=== PATIENT | female | born 1965 | race Caucasian/White ===

== ENCOUNTER 2019-06-18 03:18 | Outpatient (CLI) | payer BC, SELFPAY ==
[2019-06-18 08:45] LABS: Calculated LDL 146 mg/dL; Cholesterol 251 mg/dL (<200); HDL Cholesterol 98 mg/dL (40-60); Triglyceride 36 mg/dL (<150)
[2019-06-18 09:52] LABS: FREE T4 0.96 ng/dL (0.76-1.46)
[2019-06-18 16:35] LABS: T3,Free 3.3 pg/mL (2.8-5.3)
== END 2019-06-18 03:38 ==
PROVIDERS: PCP Naturopath; Visit Provider Naturopath
DX: E78.5 Hyperlipidemia, unspecified (principal); R79.89 Other specified abnormal findings of blood chemistry
CPT/HCPCS: 36415; 80061; 84439; 84443; 84481

== ENCOUNTER 2019-07-28 01:41 | Outpatient (CLI) | payer BC, SELFPAY ==
[2019-07-28 10:46] LABS: Calculated LDL 132 mg/dL; Cholesterol 244 mg/dL (<200); HDL Cholesterol 104 mg/dL (40-60); TSH 5.42 uIU/mL (0.36-3.74); Triglyceride 43 mg/dL (<150)
[2019-07-28 11:23] LABS: FREE T4 0.85 ng/dL (0.76-1.46)
[2019-07-29 11:55] LABS: T3, Total 103 ng/dL (97-169)
[2019-07-31 00:20] LABS: 25-Hydroxy D Total 55 ng/mL; 25-Hydroxy D2 <4.0 ng/mL; 25-Hydroxy D3 55 ng/mL
== END 2019-07-28 02:01 ==
PROVIDERS: PCP Naturopath; Visit Provider Naturopath
DX: E78.5 Hyperlipidemia, unspecified (principal); R79.89 Other specified abnormal findings of blood chemistry; E55.9 Vitamin D deficiency, unspecified
CPT/HCPCS: 36415; 80061; 82306; 84439; 84443; 84480; 84481

== ENCOUNTER 2020-01-11 02:15 | Outpatient (CLI) | payer BC, SELFPAY ==
[2020-01-11 09:04] LABS: FREE T4 0.94 ng/dL (0.76-1.46); TSH 5.28 uIU/mL (0.36-3.74)
[2020-01-11 11:06] LABS: Calculated LDL 135 mg/dL (<100); Cholesterol 251 mg/dL (<200); HDL Cholesterol 106 mg/dL (40-60); Triglyceride 51 mg/dL (<150)
[2020-01-11 17:04] LABS: T3,Free 2.6 pg/mL (2.8-5.3)
[2020-01-14 13:57] LABS: Testosterone, Free 0.13 ng/dL (0.06-0.90); Testosterone, Total 14 ng/dL (8-60)
== END 2020-01-11 02:35 ==
PROVIDERS: PCP Nurse Practitioner Family; Visit Provider Naturopath
DX: E78.5 Hyperlipidemia, unspecified (principal); E03.9 Hypothyroidism, unspecified; R79.89 Other specified abnormal findings of blood chemistry
CPT/HCPCS: 36415; 80061; 84402; 84403; 84439; 84443; 84481

== ENCOUNTER 2020-06-15 02:52 | Outpatient (CLI) | payer BC, SELFPAY ==
[2020-06-15 16:24] LABS: D-Dimer 196 ng/mlFEU (<500)
[2020-06-15 17:37] LABS: TSH 5.05 uIU/mL (0.36-3.74)
[2020-06-15 17:56] LABS: FREE T4 0.79 ng/dL (0.76-1.46)
[2020-06-21 10:52] LABS: Factor V Leiden(R506Q) Mut Negative (Negative)
[2020-07-01 10:41] LABS: T3, Total 71 ng/dL (80-200)
[2020-07-01 10:42] LABS: T3,Free 2.8 pg/mL
== END 2020-06-15 03:12 ==
PROVIDERS: PCP Nurse Practitioner Family; Visit Provider Naturopath
DX: E55.9 Vitamin D deficiency, unspecified (principal); R79.89 Other specified abnormal findings of blood chemistry; Z82.49 Family history of ischemic heart disease and other diseases of the circulatory system
CPT/HCPCS: 36415; 81241; 82306; 84439; 84443; 84480; 84481; 85379

== ENCOUNTER 2020-10-04 12:26 | Outpatient (CLI) | payer BC, SELFPAY ==
--- NOTE | 2020-10-04 14:45 | RT.EKG_ITS ---
APPROVED REPORT Exam: Resting ECG Patient Location: O HR:76 bpm ECG Measurements Heart Rate 76 AXIS ND 165 P 80 QRSd 106 QRS 54 QT 398 T 25 QTc 447 Conclusion Sinus rhythm...normal P axis, V-rate 60- 99
== END 2020-10-04 12:27 | disposition home or self-care (01) ==
LOC: RT 12:32
PROVIDERS: PCP Nurse Practitioner Family; Visit Provider Naturopath
DX: R00.2 Palpitations (principal)
CPT/HCPCS: 93005; 93010

== ENCOUNTER 2020-12-09 23:06 | Emergency (ER) | payer BC, SELFPAY ==
[2020-12-09] VITALS (10 sets, daily range): BP systolic 134–173; BP diastolic 77–91; PULSE 78–91; RESP 9–20; TEMP 37; O2SAT 88–100
--- NOTE | 2020-12-09 23:00 | RT.EKG_ITS ---
APPROVED REPORT Exam: Resting ECG Reason for Exam: palpitations Patient Location: E HR:85 bpm ECG Measurements Heart Rate 85 AXIS PA 185 P 70 QRSd 103 QRS 57 QT 371 T 37 QTc 442 Conclusion Sinus rhythm...normal P axis, V-rate 60- 99 Normal [place] Normal Intervals Normal Electrocardiogram
--- NOTE | 2020-12-09 23:49 | W.ED.GENAD ---
Discharge Plan Disposition Patient Disposition: HOME Condition: Good Discharge Details Clinical Impression: Palpitations, Hypokalemia Primary Care Provider: Emma Duncan ED Provider: Manuel Schmitz Meds and New Rx's Prescriptions: Continued cholecalciferol (vitamin D3) 1,000 unit/drop drops 2,000 unit PO DAILY RF: 0 Probiotics 1 cap PO DAILY RF: 0 Vitamin C 1 tab PO DAILY RF: 0 azithromycin 250 mg tablet 250 mg PO DAILY RF: 0 Discharge Instructions Instructions: Heart Palpitations (ED), Hypokalemia (ED) Additional Instructions: EKG is normal. No arrhythmia alarms while monitored tonight. Laboratory studies look good although potassium a little low. Order placed for 14-day surveillance monitor to be placed on same day that you get your echo. Follow-up with primary care. Return to ED for syncope, chest pain, shortness of breath, prolonged/persistent palpitations. Referrals: Emma Duncan, [employer]SEM[employer] INSPECTOR [Primary Care Provider] - Medical Decision Making Episode of palpitations that woke her up tonight. Resolved by time she arrived to ED. Has had similar yet less intense and shorter episodes previously over the last few months. No associated chest pain/pressure or shortness of breath. Scheduled to have an ECHO next week. EKG tonight is normal. Monitor shows sinus rhythm. Will send blood work to check TSH and electrolytes. Given previous history not concerned for ACS or PE. Will order outpatient 14-day surveillance monitor to be placed on same day she comes to have her ECHO. 01:00 - Labs look okay other than potassium being a little low. This was replaced orally tonight. TSH high but free T4 is normal. No arrhythmia alarms on the monitor while here. Will discharge home and follow-up with primary care as well as return to hospital on of next week for ECHO and placement of surveillance monitor. Lab Data Lab results reviewed: Yes I reviewed the patient's lab results. ECG Data Attestation: I personally reviewed and interpreted this ECG (s) as follows: Prior ECG tracings: available for review Interpretation: see EKG HPI General Mode of arrival: ambulatory. Date/Time Provider Initiated Documentation: 12/09/20 23:47. Limitations to Documentation: no limitations. Information obtained by: patient and RN notes reviewed. HPI Narrative: Patient presents to ED after waking up tonight with palpitations/heart racing. She has had similar yet less intense and shorter episodes than serene. She denies having any type of chest pain or pressure. She denies any shortness of breath. She is scheduled for an ECHO next week. She has not had Holter monitoring. Patient denies any illness other than a tooth infection for which she is on antibiotic and has an appointment for removal on Saturday. She has had no fever, cough, vomiting, diarrhea. Symptoms resolved since she was checked into the ED. She did not experience any lightheadedness or dizziness during the episode. Related Data Home Medications Medication Instructions Recorded Confirmed Probiotics 1 cap PO DAILY 11/15/14 12/09/20 Vitamin C 1 tab PO DAILY 11/15/14 12/09/20 cholecalciferol (vitamin D3) 2,000 unit PO DAILY ml 04/25/18 12/09/20 azithromycin 250 mg PO DAILY 12/09/20 12/09/20 Allergies Allergy/AdvReac Type Severity Reaction Status Date / Time Sulfa (Sulfonamide Allergy Intermediate Skin Rash Verified 12/09/20 23:15 Antibiotics) General Stated Complaint: Palpitatns MARIAMA: 2 Review of Systems Narrative: As documented in HPI otherwise negative as below. 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 Daughter No problems noted. Maternal Grandfather , in his 80s COPD (chronic obstructive pulmonary disease) Maternal Grandmother , at 96 of old age Colon cancer in her 70s Paternal Grandfather , at 86 COPD (chronic obstructive pulmonary disease) Paternal Grandmother , at 96 of old age No problems noted. Social History Smoking/Tobacco Use Status: Never Smoking risk assessment performed?: Yes Alcohol Intake: current Alcohol Intake frequency: holidays/special occasions only Substance use type: does not use Household members: spouse current occupation: planning and analysis manager Current gender identity: female Duration: 60-90 minutes/day Frequency: 5-6 times per week Do you feel safe at home: Yes Do you feel safe in your relationship?: Yes History History 2 Para 2 Hx # Term Pregnancies Multiple births Hx # Pregnancies Ectopic pregnancies AB induced Hx Number of Living Children 2 AB spontaneous Exam Narrative Exam Narrative: Const: WDWN female in NAD. HEENT: NC/AT. Normal facial exam. Eyes: Normal conjunctiva and sclera. Neck: Supple. Trachea midline. Lungs: Normal respiratory effort. Lungs are clear. Cor: RRR without murmur/gallop. Good radial pulses. Neuro: A+O x 3. Normal speech, mentation, gait. Cranial nerves II - XII grossly intact. No gross motor or sensory deficit. Ext: No C/C/E. Skin: Warm and dry without rash. Course Vital Signs Vital signs: Vital Signs Temperature 98.6 F 12/09/20 23:09 Pulse 91 H 12/09/20 23:09 Respiratory Rate 15 12/09/20 23:09 Blood Pressure 173/91 H 12/09/20 23:09 Pulse Oximetry 88 L 12/09/20 23:09 Temperature 98.6 F 12/09/20 23:09 Temperature Source Skin 12/09/20 23:09 Pulse 80 12/09/20 23:46 Pulse 80 12/09/20 23:46 Respiratory Rate 10 L 12/09/20 23:46 Respiratory Effort Non-Labored 12/09/20 23:20 Blood Pressure 134/77 12/09/20 23:46 Blood Pressure Mean 93 12/09/20 23:46 Blood Pressure Position Supine 12/09/20 23:09 Pulse Oximetry 100 12/09/20 23:46 Oxygen Delivery Method Room Air 12/09/20 23:09 Oxygen Flow Rate 0 12/09/20 23:09 Pain Level 0 12/09/20 23:09
[2020-12-09 23:56] LABS: Abs Immature Grans 0.01 10^3/uL (0.0-0.06); Absolute Basophil Count 0.06 10^3/uL (0.0-0.2); Absolute Eosinophil Count 0.21 10^3/uL (0.0-0.7); Absolute Lymphocyte Count 3.37 10^3/uL (1.2-3.4); Absolute Monocyte Count 0.89 10^3/uL (0.1-0.8); Basophils % 0.8; Eosinophils % 2.9; HCT 41.4 % (36.0-46.0); Immature Grans % 0.1; Lymphocytes % 45.9; MCH 30.8 pg (27.0-33.0); MCHC 33.8 % (32.0-36.0); MPV 10.1 fL (8.0-11.0); Monocytes % 12.1; Neutrophils % 38.2; Nucleated RBC 0 %; Platelet Count 343 10^3/uL (130-400); RBC 4.55 10^6/uL (3.93-5.22); RDW 11.9 % (11.7-14.6); RDW-SD 39.9 fL; WBC 7.34 10^3/uL (4.4-10.8)
[2020-12-10] VITALS (13 sets, daily range): BP systolic 122–130; BP diastolic 75–82; PULSE 68–81; RESP 9–17; O2SAT 97–100
[2020-12-10 00:09] LABS: Magnesium 2.1 mg/dL (1.8-2.4)
[2020-12-10 00:22] LABS: Anion Gap 10.2 mmol/L (3-11); BUN 24 mg/dL (7-18); CO2 28.8 mmol/L (21.0-32.0); CREATININE 0.8 mg/dL (0.55-1.02); Calcium 9.7 mg/dL (8.5-10.1); Chloride 103 mmol/L (98-107); Glucose 97 mg/dL (74-106); Potassium 3.2 mmol/L (3.5-5.1); Sodium 142 mmol/L (136-145); TSH (W/Ref FT4) 25.75 uIU/mL (0.36-3.74)
[2020-12-10 00:43] LABS: FREE T4 0.99 ng/dL (0.76-1.46)
[2020-12-10] MEDS: Potassium Chloride 20 MEQ TABCR 40 MEQ PO (01:16)
--- NOTE | 2020-12-12 12:30 | HOLTER_ITS ---
APPROVED REPORT Conclusion This is a 48-hour monitor ordered for the indication of palpitations. Patient was in normal sinus rhythm for the majority of the recording with an average heart rate of 67 bpm. There were no episodes of ventricular tachycardia nor any episodes of supraventricular tachycardia. There were rare PACs (less than 1%). There were no episodes of atrial fibrillation no pauses greater than 3 seconds and no evidence of hig h degree heart block. There were 7 patient triggered events 2 of which were associated with a PAC the rest normal sinus [facility].
== END 2020-12-10 01:20 | disposition home or self-care (01) ==
PROVIDERS: Emergency Provider Emergency Medicine; PCP Nurse Practitioner Family
DX: R00.2 Palpitations (principal); E87.6 Hypokalemia; R94.6 Abnormal results of thyroid function studies
CPT/HCPCS: 36415; 80048; 93005; 99284; 83735; 84439; 84443; 85025; 93010; 93225

== ENCOUNTER 2020-12-13 14:05 | Outpatient (RCR) | payer BC, SELFPAY | END 2020-12-26 23:59 | disposition home or self-care (01) | LOC: RT 14:05 | PROVIDERS: PCP Nurse Practitioner Family; Visit Provider Emergency Medicine | DX: R00.2 Palpitations (principal); I49.1 Atrial premature depolarization | CPT/HCPCS: 93226 ==

== ENCOUNTER 2020-12-15 02:12 | Outpatient (CLI) | payer BC, SELFPAY ==
--- NOTE | 2020-12-15 07:38 | DI.US_ITS ---
APPROVED REPORT EXAM: Comprehensive 2D, Doppler, and color-flow Echocardiogram Patient Location: Out-Patient Vice President Education: Gabriela Tejeda RDCS (AE) Indications: Murmur Other Information Study Quality: Good Conclusion Left Ventricle : The left ventricle is normal size. The left ventricular systolic function is normal. The left ventricular ejection fraction is within the normal range. There is normal left ventricular wall thickness. There is normal LV segmental wall motion. LVEF is 60%. Right Ventricle : The right ventricle is normal size. The right ventricular systolic function is norm al. The RVSP is 25.0 mmHg. Atria : The left atrium size is normal. The right atrium size is normal. Valves: There are no hemodynamically significant valvular lesions. Great Vessels : The aortic root is normal in size. The ascending aorta is normal in size. Aortic arch is not well visualized. IVC is normal in size and collapses >50% with inspiration. Wall motion Left Ventricle The left ventricle is normal size. The left ventricular systolic function is normal. The left ventric ular ejection fraction is within the normal range. There is normal left ventricular wall thickness. T here is normal LV segmental wall motion. There is no ventricular septal defect visualized. LVEF is 60 %. Right Ventricle The right ventricle is normal size. The right ventricular systolic function is normal. The RVSP is 25 .0 mmHg. Atria The left atrium size is normal. The right atrium size is normal. The interatrial septum is intact wit h no evidence for an atrial septal defect. Aortic Valve The aortic valve is normal in structure. Aortic valve is trileaflet. There is no aortic valvular sten osis. No aortic regurgitation is present. Mitral Valve The mitral valve is normal in structure. No evidence of mitral valve stenosis. Trace to mild mitral r egurgitation. Tricuspid Valve The tricuspid valve is normal in structure. There is no tricuspid valve stenosis. Trace to mild tricu spid regurgitation. Pulmonic Valve The pulmonary valve is normal in structure. There is no pulmonic valvular stenosis. There is no pulmo reece valvular regurgitation. Great Vessels The aortic root is normal in size. The ascending aorta is normal in size. Aortic arch is not well vis ualized. IVC is normal in size and collapses >50% with inspiration. Pericardium There is no pericardial effusion. 2D Dimensions IVSD d PLAX 0.80 cm F: 0.6-1.0 LV Vol A2C d MOD 93.4 mL LVPW d PLAX 0.80 cm F: 0.6 - 1.0 LV Vol A4C d MOD 83.2 mL LVID d PLAX 4.89 cm F: 3.8 - 5.2 LA Area A4C s MOD 19.45 cm2 LVDs 3.35 cm F: 2.2 - 3.5 LA Area A2C s MOD 13.25 cm2 Ao Root d 2.74 cm F: 2.7 - 3.3 LV EF A4C MOD 62.5 % RA Area A4C 13.20 cm2 LV EF A2C MOD 62.9 % Ao Asc Diam d 3.08 cm F: 2.3 - 3.1 LV EF Biplane MOD 63.3 % LV EF Teichholz 59.2 % SV 59.11 mL LVEF (Puckett's) 63.30 % F: 54 - 74 LV Volume 93.39 mL F: 46 - 106 LV Volume Index 54.29 mL/m2 F: 29 - 61 LV Vol Biplane MOD 93.4 mL FS 31.40 % LV Diastology E/A Ratio 1.1 MV E Vmax 0.63 (0.4-1.3 m/s) MV A Vmax 0.55 (0.4-1.3 m/s) MV E/A Ratio 1.07 Aortic Valve LVOT Area 3.18 cm2 AoV Area Vmax 2.58 cm2 LVOT Vmax 1.04 m/s ARVIND Mean Simon. 2.55 cm2 LVOT Mean Simon. 0.63 m/s LVOT Peak Grad 4.3 mmHg LVOT Mean Grad 1.9 mmHg LVOT VTI 0.233 m LVOT Diam s 2.00 cm AoV Vmax 1.28 m/s Velocity Ratio 0.81 AoV Mean Simon. 0.78 m/s AoV Peak Grad 6.6 mmHg LVOT SV 74.25 mL AoV Mean Grad 2.9 mmHg AoV VTI 0.249 m AoV Area VTI 2.99 cm2 Mitral Valve MV DT 222 (160-240 msec) MR Vmax 4.72 m/s MV PHT 64 msec MR VTI 1.709 m MV Area PHT 3.41 cm2 MR Peak Grad 89.0 mmHg MV VTI 0.194 m MR Mean Grad 64.7 mmHg MV VTI Annulus 0.197 m MR PISA Radius 0.41 cm MV Area VTI 3.89 (4.0-6.0 cm2) MR EROA 0.08 cm2 MR Aliasing Velocity 0.35 m/s MR PISA 1.05 cm2 Pulmonary Valve PV Vmax 0.85 (0.5-1.5 m/s) RVOT Peak Gr. 2.52 mmHg PV Peak Grad 2.9 mmHg RVOT Mean Gr. 1.30 mmHg PV Mean Grad 1.6 mmHg RVOT VTI 0.187 m PV VTI 0.177 m RVOT Vmax 0.79 m/s Tricuspid Valve TR Peak Grad 22.0 mmHg TR Vmax 2.35 m/s RA Pressure 3.00 mmHg RVSP (TR) 25.0 mmHg
== END 2020-12-15 02:32 ==
PROVIDERS: PCP Nurse Practitioner Family; Visit Provider Naturopath
DX: R01.1 Cardiac murmur, unspecified (principal)
CPT/HCPCS: 93306

== ENCOUNTER 2021-01-16 03:20 | Outpatient (CLI) | payer BC, SELFPAY ==
[2021-01-16 08:37] LABS: Anion Gap 6.7 mmol/L (3-11); BUN 16 mg/dL (7-18); CO2 29.3 mmol/L (21.0-32.0); CREATININE 0.7 mg/dL (0.55-1.02); Calcium 9.2 mg/dL (8.5-10.1); Chloride 105 mmol/L (98-107); FREE T4 0.75 ng/dL (0.76-1.46); Glucose 92 mg/dL (74-106); Potassium 4.1 mmol/L (3.5-5.1); Sodium 141 mmol/L (136-145); TSH 6.81 uIU/mL (0.36-3.74)
[2021-01-18 22:31] LABS: Thyroglobulin Antibody <15 U/mL (<=60); Thyroperoxidase Antibody <28 U/mL (<=60)
== END 2021-01-16 03:21 | disposition home or self-care (01) ==
LOC: LBO 03:20
PROVIDERS: PCP Nurse Practitioner Family; Visit Provider Nurse Practitioner Family
DX: E03.9 Hypothyroidism, unspecified (principal)
CPT/HCPCS: 36415; 80048; 86376; 84439; 84443; 84481

== ENCOUNTER 2021-07-19 02:54 | Outpatient (CLI) | payer BC, SELFPAY ==
[2021-07-19 08:46] LABS: HCT 41.4 % (36.0-46.0); HGB 13.4 g/dL (11.2-15.7); MCHC 32.4 % (32.0-36.0); MCV 92.6 fL (80-95); MPV 9.7 fL (8.0-11.0); Platelet Count 344 10^3/uL (130-400); RBC 4.47 10^6/uL (3.93-5.22); RDW 12.6 % (11.7-14.6)
[2021-07-19 09:53] LABS: ALT 35 U/L (14-59); AST 26 U/L (15-37); Alkaline Phosphatase 75 U/L (46-116); Anion Gap 5.8 mmol/L (3-11); BUN 13 mg/dL (7-18); Bilirubin, Total 0.7 mg/dL (0.2-1.0); CO2 30.2 mmol/L (21.0-32.0); CREATININE 0.7 mg/dL (0.55-1.02); Calcium 9.4 mg/dL (8.5-10.1); Chloride 100 mmol/L (98-107); Ferritin 162 ng/mL (8-252); Glucose 95 mg/dL (74-106); Potassium 4.1 mmol/L (3.5-5.1); Sodium 136 mmol/L (136-145); TSH 5.93 uIU/mL (0.36-3.74); Total Protein 7.2 g/dL (6.4-8.2)
[2021-07-19 10:06] LABS: Iron 106 ug/dL (50-170); Total Iron Binding Capacity 241 ug/dL (250-450); Transferrin Sat 44 % (15-50)
[2021-07-19 10:22] LABS: FREE T4 0.91 ng/dL (0.76-1.46)
[2021-07-19 22:40] LABS: T3,Free 3.3 pg/mL (2.8-5.3)
[2021-07-19 22:54] LABS: T3, Total 128 ng/dL (97-169)
[2021-07-20 05:31] LABS: Vitamin D 25 Total 88.9 ng/mL (30-100)
== END 2021-07-19 02:55 | disposition home or self-care (01) ==
LOC: LBO 02:54
PROVIDERS: PCP Nurse Practitioner Family; Visit Provider Naturopath
DX: R53.83 Other fatigue (principal); E55.9 Vitamin D deficiency, unspecified
CPT/HCPCS: 36415; 80053; 82306; 85027; 82728; 83540; 83550; 84439; 84443; 84480; 84481

== ENCOUNTER 2022-05-28 03:24 | Outpatient (CLI) | payer BC, SELFPAY ==
[2022-05-28 13:18] LABS: ALT 22 U/L (14-59); AST 31 U/L (15-37); Albumin 4.1 g/dL (3.4-5.0); Alkaline Phosphatase 72 U/L (46-116); Anion Gap 7.8 mmol/L (3-11); BUN 15 mg/dL (7-18); Bilirubin, Total 0.7 mg/dL (0.2-1.0); CO2 29.2 mmol/L (21.0-32.0); CREATININE 0.7 mg/dL (0.55-1.02); Calcium 9.6 mg/dL (8.5-10.1); Calculated LDL 154 mg/dL (<100); Chloride 102 mmol/L (98-107); Cholesterol 268 mg/dL (<200); Estimated GFR 100.19 (mL/min/1.73m2); Glucose 93 mg/dL (74-106); HDL Cholesterol 104 mg/dL (40-60); Magnesium 1.8 mg/dL (1.8-2.4); Potassium 4.8 mmol/L (3.5-5.1); Sodium 139 mmol/L (136-145); TSH (W/Ref FT4) 5.04 uIU/mL (0.36-3.74); Total Protein 7.8 g/dL (6.4-8.2); Triglyceride 50 mg/dL (<150)
[2022-05-28 13:43] LABS: FREE T4 0.89 ng/dL (0.76-1.46)
[2022-05-29 18:13] LABS: T3,Free 3.1 pg/mL (2.8-5.3)
[2022-05-29 18:28] LABS: T3, Total 105 ng/dL (97-169)
[2022-06-03 17:46] LABS: 25-Hydroxy D Total 53 ng/mL; 25-Hydroxy D2 <4.0 ng/mL; 25-Hydroxy D3 53 ng/mL
== END 2022-05-28 03:25 | disposition home or self-care (01) ==
LOC: LOS 03:24
PROVIDERS: PCP Nurse Practitioner Family; Visit Provider Naturopath
DX: E87.6 Hypokalemia (principal); E78.5 Hyperlipidemia, unspecified; R79.89 Other specified abnormal findings of blood chemistry; E55.9 Vitamin D deficiency, unspecified
CPT/HCPCS: 36415; 80053; 80061; 82306; 83735; 84439; 84443; 84480; 84481